=== PATIENT | female | born 1940 | race Caucasian/White ===

== ENCOUNTER 2017-02-15 13:32 | Emergency (ER) | payer MEDICARE, BC ==
--- NOTE | 2017-02-15 14:56 | EDM.PDOC ---
ED HPI GENERAL MEDICAL PROBLEM - General Chief Complaint: General Stated Complaint: BLOOD WORK - History of Present Illness INITIAL COMMENTS - FREE TEXT/NARRATIVE: pt left AMA before she was seen by me - Related Data Allergies Allergy/AdvReac Type Severity Reaction Status Date / Time terazosin HCl [From Hytrin] Allergy UNKNOWN Verified 09/22/13 10:40 Home Meds: Home Meds Ezetimibe [Zetia] 10 mg PO DAILY 09/22/13 [History] Lisinopril 20 mg PO DAILY 09/22/13 [History] Metoprolol Succinate [Toprol XL] 50 mg PO DAILY 09/22/13 [History] glipiZIDE [Glucotrol] 10 mg PO TID 09/22/13 [History] hydrALAZINE [Apresoline] 100 mg PO Q12HR 09/22/13 [History] Social & Family History - Alcohol Use Days Per Week of Alcohol Use: 0 - Recreational Drug Use Recreational Drug Use: No Departure - Departure Disposition: Against Medical Advice 07 - Discharge Information Forms: ED Department Discharge
== END 2017-02-15 13:47 | disposition left against medical advice (07) ==
LOC: FB.ED 13:32
DX: Z53.20 Procedure and treatment not carried out because of patient's decision for unspecified reasons (principal)
CPT/HCPCS: 99284